=== PATIENT | male | born 1990 | race Asian ===

== ENCOUNTER 2024-06-22 04:01 | Day surgery (SDC) | payer OTHER ==
[2024-06-22] VITALS (221 sets, daily range): BP systolic 75–134; BP diastolic 42–108
[~2024-06-22] VITALS: Ht 180.3 cm; Wt 77.3 kg
--- NOTE | 2024-06-22 07:00 | NUR ---
Patient arrived to the ANR suite, identification and demographics confirmed. Patient to room 9, AAO, ambulatory, vitals obtained, ID/allergy/fall bands placed, changed into hospital gown, YOLANDA hose, and non-slip socks. Procedure and timeline explained for treatment and discharge. All questions answered and the patient presents no concerns at this time.
[2024-06-22] MEDS ORDERED: SCOPOLAMINE 1.5 MG DIS TD PRN (07:30)
[2024-06-22] MEDS ORDERED: cloNIDine HCL 0.1 MG/TAB PO PRN (07:30)
[2024-06-22] MEDS ORDERED: FAMOTIDINE 20 MG/TAB PO PRN (07:30)
[2024-06-22] MEDS ORDERED: diazePAM 5 MG/TAB PO PRN ×2 (07:30→08:30)
[2024-06-22] MEDS ORDERED: PANTOPRAZOLE SODIUM Sesquihydr 40 MG/TAB PO PRN (07:30)
[2024-06-22] MEDS ORDERED: LACTATED RINGER'S 1,000 ML IV PRN ×3 (07:30→19:00)
[2024-06-22] MEDS ORDERED: CYANOCOBALAMIN 500 MCG/TAB ( B12) PO PRN (07:30)
[2024-06-22] MEDS ORDERED: ALBUTEROL SULFATE 2.5 MG VIAL IN PRN (07:30)
--- NOTE | 2024-06-22 07:45 | NUR ---
Dr. Norton telephoned with patient intake information including usage, dose, last dose/time taken and initial vital signs. Patient history and allergies reviewed with MD. Orders received for 5 mg PO Valium and 0.2 mg PO Clonidine now. Will reassess per protocol in 1.5 hours and update MD with assessment and vitals.
[2024-06-22] MEDS ORDERED: ASCORBIC ACID 4,000 MG in SODIUM CHLORIDE 0.9% 1,000 ML IV SCH (08:00)
[2024-06-22 08:31] LABS: BASO% 0.5 % (0-3); EOS% 3.2 % (0-8); HEMATOCRIT 42.4 % (39.0-50.0); HEMOGLOBIN 13.5 g/dl (14.0-18.0); IMMATURE GRANULOCYTES 0.2 % (0.0-5.0); LYMPH% 35.7 % (15-41); MEAN CELL VOLUME 88.5 fL CALC (80.0-100.0); MEAN CORPUSCULAR HGB 28.2 pG CALC (26.0-32.0); MEAN CORPUSCULAR HGB CONC 31.8 g/dL CAL (32.0-36.0); NEUT# 3.26 thou/uL (1.82-7.42); NEUT% 52.4 % (42-76); RED BLOOD COUNT 4.79 mill/uL (4.70-6.10); RED CELL DISTRI WIDTH 11.7 % (11.5-15.5)
[2024-06-22 08:41] LABS: ALBUMIN 3.9 g/dL (3.2-5.0); BILIRUBIN, TOTAL 0.3 mg/dL (0.2-1.3); CREATININE 0.9 mg/dL (0.7-1.3); POTASSIUM 3.7 mmol/l (3.5-5.1); TOTAL PROTEIN 6.4 g/dL (6.3-8.2)
[2024-06-22] MEDS ORDERED: cloNIDine HYDROCHLORIDE 100 MCG/ML 10 ML INJ IV PRN (09:25)
[2024-06-22] MEDS ORDERED: LIDOCAINE HCL 1% (10MG/ML) 100 MG/10 ML MDV VT PRN ×2 (09:25)
[2024-06-22] MEDS ORDERED: DiphenhydrAMINE HCL 50 MG/ML SDV IV PRN (09:25)
[2024-06-22] MEDS ORDERED: diazePAM 5 MG/TAB VT PRN (09:25)
[2024-06-22] MEDS ORDERED: OCTREOTIDE ACETATE 100 MCG/VIAL SDV SC PRN (09:25)
[2024-06-22] MEDS ORDERED: cloNIDine HCL 0.1 MG/TAB VT PRN (09:25)
[2024-06-22] MEDS ORDERED: LIDOCAINE HCL 1% (10MG/ML) 100 MG/10 ML MDV IV PRN (09:25)
[2024-06-22] MEDS ORDERED: ONDANSETRON HCl 4 MG/2 ML SDV IV PRN ×3 (09:25→19:00)
[2024-06-22] MEDS ORDERED: PROPOFOL 10 MG/ML 100ML VIAL IV PRN (09:25)
[2024-06-22] MEDS ORDERED: DEXAMETHASONE SODIUM PHOSPHATE PF 10 MG/ML SDV IV PRN ×2 (09:25→19:00)
[2024-06-22] MEDS ORDERED: MIDAZOLAM HCL 2 MG/2 ML VIAL IV PRN (09:25)
[2024-06-22] MEDS ORDERED: STERILE WATER FOR IRRIGATION 1,000 ML BTL IR PRN (09:25)
[2024-06-22] MEDS ORDERED: PROPOFOL 100 ML IV PRN (09:25)
[2024-06-22] MEDS ORDERED: POTASSIUM CHLORIDE 20 MEQ/100 ML BAG IV PRN (09:25)
[2024-06-22] MEDS ORDERED: SUCCINYLCHOLINE CHLORIDE 20 MG/ML 10ML VIAL IV PRN (09:25)
[2024-06-22] MEDS ORDERED: NALTREXONE HCL 50 MG/TAB VT PRN (09:25)
[2024-06-22] MEDS ORDERED: THIAMINE HCL 100 MG/ML 2ML VIAL IV PRN (09:25)
[2024-06-22] MEDS ORDERED: ROCURONIUM BROMIDE 10 MG/ML 5ML VIAL IV PRN (09:25)
[2024-06-22] MEDS ORDERED: MAGNESIUM SULFATE HEPTAHYDRATE 100 ML IV PRN (09:25)
--- NOTE | 2024-06-22 09:30 | NUR ---
Patient resting comfortably in bed. Easily aroused, maintains focus, and drifts back to sleep. No signs of active withdrawal or distress noted at this time. Continuous SPO2, rhythm, and respiratory monitoring initiated. IVF @ 250 mL/HR, room air, VSS.
[2024-06-22] MEDS ORDERED: PHENYLEPHRINE HCL 10 MG/ML VIAL ONE (10:01)
[2024-06-22] MEDS ORDERED: SODIUM CHLORIDE 0.9% 250 ML IV ONE (10:02)
--- NOTE | 2024-06-22 11:33 | NUR ---
Induction Note Patient to ANR procedure room. Time out performed at 1106. Patient placed on monitors, Gaudencoi hugger, bilateral wrist restraints applied for ET tube protection. Versed 5mg given IV push at 1127 Tourniquet applied to right arm Lidocaine 100mg given at 1128 IV push followed by Rocoronium 10mg at 1129 IV push and held for 90 seconds. Propofol bolus of 160mg given at 1131 IV push. Succinylcholine 80mg given IV push at 1132. Smooth intubation with 7.5 ETT. Positive CO2. Positive Auscultation for air exchange. ET tube secured 22 @ the lip with tube hancock by Dr. Norton. Patient placed on ventilator for spontaneous ventilation. Placed on Propofol IV drip at 1133. OG inserted. Positive air on auscultation. Positive gastric content. Stomach washed at this time.
--- NOTE | 2024-06-22 11:45 | NUR ---
OG close note Stomach washed at this time. Naltrexone 50 mg via OG tube. OG will be clamped for 45 minutes.
--- NOTE | 2024-06-22 12:30 | NUR ---
OG open note OG open at this time. Gastric content draining into drainage bag. OG to drain for 45 minutes. Propofol will be titrated down based on patient.
--- NOTE | 2024-06-22 13:15 | NUR ---
OG close note Stomach washed at this time. Naltrexone 50 mg with Clonidine 0.1 mg via OG tube. OG will be clamped for 45 minutes.
--- NOTE | 2024-06-22 14:45 | NUR ---
OG close note Stomach washed at this time. Naltrexone 50 mg with Clonidine 0.1 mg via OG tube. OG will be clamped for 45 minutes.
[2024-06-22] MEDS ORDERED: NALTREXONE50 MG PO (15:24)
[2024-06-22] MEDS ORDERED: CLONIDINE0.1 MG PO (15:24)
[2024-06-22] MEDS ORDERED: KLONOPIN2 MG PO (15:25)
--- NOTE | 2024-06-22 16:15 | NUR ---
No OG close at this time. Patient minimally reacting to treatment. Vitals, total Naltrexone & Clonidine, current Propofol infusion rate, treatment duration, and patient assessment discussed with Dr. Norton. No orders for medication administration at this time. OG will remain open to allow time for patient to continue reacting to therapy.
--- NOTE | 2024-06-22 17:00 | NUR ---
OG close note Stomach washed at this time. Naltrexone 12.5 mg, Valium 10mg, and Clonidine 0.2 mg via OG tube. OG will be clamped for 30 minutes for closing dose.
--- NOTE | 2024-06-22 17:42 | NUR ---
Extubation note Closing medications given Benadryl 50mg IV push, Decadron 10mg IV push,Magnesium 4 grams IV, Zofran 8mg IV push, Octreotide 100mcg SC. Stomach washed out prior to extubation. Suctioned gastric content. OG removed. Patient extubated. Propofol Discontinued. Wrist restraints removed. Gaudencio hugger Removed. See ANR Moderate sedate recovery record for further notes and assessment.
--- NOTE | 2024-06-22 18:00 | NUR ---
PT PERSONAL BELONGINGS STORED IN LOCKER CRANDALL # 2 IN ANR.
--- NOTE | 2024-06-22 18:15 | NUR ---
PHONE CALL PLACED TO PT MOTHER. UPDATE PROVIDED AT THIS TIME. ALL QUESTIONS AND CONCERNS ANSWERED.
--- NOTE | 2024-06-22 18:38 | NUR ---
patient arrived to ms @ 1630 patient resting in; on room air; breathing unlabored and even; vitals stable; no s.s of distress at this time; iv site clean and intact LR runnning @100 in RAC; beside report given from Darius MAURO; patient laying semi byers in bed; call light within reach, personal items in ANR locker; bed in lowest postion; bed alarm activated
--- NOTE | 2024-06-22 18:40 | NUR ---
Patient to room 283 in no acute distress. Transfer of care to [facility] RORY. at bedside. PT on RA, IVF to continue at 100ml/hr. VSS. Patient resting comfortably, no adventitious breath sounds appreciated. Bed alarm set. See chart/EMAR for procedural details and assessments. Handoff of care at the time of this note.
[2024-06-22] MEDS ORDERED: PROMETHAZINE HCL 25 MG in SODIUM CHLORIDE 0.9% 50 ML IV PRN (19:00)
[2024-06-22] MEDS ORDERED: LORazepam 2 MG/ML IV PRN ×2 (19:00)
[2024-06-22] MEDS ORDERED: KETOROLAC TROMETHAMINE 30 MG/ML SDV IV PRN (19:00)
[2024-06-22] MEDS ORDERED: HALOPERIDOL LACTATE 5 MG/ML SDV IV PRN (19:00)
[2024-06-22] MEDS ORDERED: PROMETHAZINE HCL 12.5 MG in SODIUM CHLORIDE 0.9% 50 ML IV PRN (19:00)
[2024-06-22] MEDS ORDERED: ACETAMINOPHEN 1,000 MG/100 ML VIAL IV PRN (19:00)
[2024-06-22] MEDS ORDERED: ACETAMINOPHEN 500 MG TAB PO PRN (19:00)
--- NOTE | 2024-06-22 19:33 | NUR ---
RECEIVED REPORT FROM RORY VALLEJO. PT NOTED LAYING IN BED, SEMI FOWLERS. PT PRESENTING DROWSY, DISORIENTED, AND RESTLESS. PT CONTINUES TO TRY AND GET OUT OF BED, KICKING AT RAILINGS. MEDICATION ADMINISTERED PER EMAR FOR AGITATION. PT IS ON RM AIR, NO S/S OF DISTRESS. SEE WHEELER ASSISTED RESCUE INSTRUCTOR WITH CHANING AND CLEANING PT FROM [employer] EPISODE. ENCOURAGE PT TO RELAX AND REST. NURSING ASSESSMENT COMPLETED, IV SITES APPEARS HEALTHY AND INTACT. BED ALARM ON AND SAFETY PRECAUTIONS IN PLACE.
[2024-06-22] MEDS ORDERED: PATIENT' OWN MED CONTROLLED 1 EA DOSE IV PRN (21:00)
[2024-06-22] MEDS ORDERED: clonazePAM 1 MG/TAB PO PRN (23:00)
[2024-06-22] MEDS ORDERED: cloNIDine HCL 0.1 MG/TAB PO SCH (23:00)
--- NOTE | 2024-06-22 23:20 | NUR ---
PT RESTING NO DISTRESS NOTED ON EXAM. VS WNL ON RA LUNGS CLEAR. NO PAIN REPORTED AT THIS TIME. IV SITE CHECKED WORKING PROPERLY FLUIDS ONGOING. BED ALARM ON. CALL LIGHT WITHIN REACH. PLAN OF CARE ONGOING.
--- NOTE | 2024-06-23 01:15 | NUR ---
PT WAS ABLE TO AMBULATE TO RESTROOM WITH ASSISTANCE STILL UNSTABLE ON HIS FEET. PT URINATED AND HAD A BM. PT PULLED OUT HIS IV ON HIS LEFT ARM CATHETER TIP INTACT. IV FLUIDS RESTARTED ON HIS RIGHT ARM IV. BED ALARM JAVASCRIPT SOFTWARE ENGINEER LIGHT WITHIN REACH. PLAN OF CARE ONGOING.
[2024-06-23] MEDS ORDERED: clonazePAM 1 MG/TAB PO PRN ×2 (04:00→08:00)
[2024-06-23] MEDS ORDERED: cloNIDine HCL 0.1 MG/TAB PO PRN (04:00)
--- NOTE | 2024-06-23 04:10 | NUR ---
PT RESTING IN BED COMPLAINING OF RESTLESSNESS AND ANXIETY. NURSE PROVIDED 0400 PRN MEDICATIONS. VS WNL ON RA. IV INFUSION ONGOING WORKING PROPERLY. NO PAIN REPORTED AT THIS TIME. BED ALARM ON. CALL LIGHT WITHIN REACH. PLAN OF CARE ONGOING. 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
[2024-06-23 04:11] VITALS: BP 112/59
[2024-06-23 04:59] LABS: BASO% 0.1 % (0-3); HEMATOCRIT 43.4 % (39.0-50.0); HEMOGLOBIN 14.2 g/dl (14.0-18.0); IMMATURE GRANULOCYTES 0.4 % (0.0-5.0); LYMPH% 5.8 % (15-41); MEAN CELL VOLUME 87.3 fL CALC (80.0-100.0); MEAN CORPUSCULAR HGB 28.6 pG CALC (26.0-32.0); MEAN CORPUSCULAR HGB CONC 32.7 g/dL CAL (32.0-36.0); MONO% 2.6 % (2-13); NEUT# 10.37 thou/uL (1.82-7.42); NEUT% 91.1 % (42-76); RED BLOOD COUNT 4.97 mill/uL (4.70-6.10); RED CELL DISTRI WIDTH 11.7 % (11.5-15.5)
[2024-06-23 05:10] LABS: ALBUMIN 3.8 g/dL (3.2-5.0); CREATININE 0.9 mg/dL (0.7-1.3); MAGNESIUM 2.2 mg/dL (1.6-2.3); POTASSIUM 3.7 mmol/l (3.5-5.1); TOTAL PROTEIN 6.4 g/dL (6.3-8.2)
[2024-06-23 05:19] LABS: BILIRUBIN, TOTAL 0.5 mg/dL (0.2-1.3)
--- NOTE | 2024-06-23 06:10 | NUR ---
PT SLEEPING NO DISTRESS NOTED BREATHING NON LABOR EVEN EASILY AROUSABLE. CALL LIGHT WITHIN REACH. BED ALARM ON. IV FLUIDS INFUSION ONGOING.
--- NOTE | 2024-06-23 06:45 | NUR ---
Rounded on pt. ZUNILDA Bergman reports no incidents overnight. Pt is lying in bed with eyes closed. Labs drawn. Appropriate replacement ordered per protocol. All safety measures in place and functioning properly.
[2024-06-23 07:50] VITALS: BP 111/57
[2024-06-23] MEDS ORDERED: POTASSIUM CHLORIDE 20 MEQ/TAB PO SCH (08:00)
[2024-06-23] MEDS ORDERED: PANTOPRAZOLE SODIUM Sesquihydr 40 MG/TAB PO SCH (08:00)
[2024-06-23] MEDS ORDERED: ACETAMINOPHEN 325 MG/TAB PO SCH (08:00)
[2024-06-23] MEDS ORDERED: NALTREXONE HCL 50 MG/TAB PO SCH (08:00)
[2024-06-23] MEDS ORDERED: cloNIDine HCL 0.1 MG/TAB PO SCH (08:00)
--- NOTE | 2024-06-23 08:23 | NUR ---
patient a/o x3; room air; breathing unlabored and even; denied any pain; denied any n/d/v at this time; no complaints; patient tolerated medication admin; vitals stable; iv site clean and intact running with LR @100; encouraged patient to eat breakfast; patient mag was within normal range, potassium under range, Dr. Norton apprroved replacement; no s.s of distress at this time; call light within reach,verbalized understanding on how to use,personal items in ANR locker; bed in lowest postion; bed alarm activated
[2024-06-23] MEDS ORDERED: MAGNESIUM OXIDE 400 MG/TAB PO PRN (09:00)
[2024-06-23] MEDS ORDERED: Cholecalciferol 2,000 UNIT/TAB PO PRN (09:00)
[2024-06-23] MEDS ORDERED: ACETAMINOPHEN 500 MG TAB PO PRN (09:00)
--- NOTE | 2024-06-23 11:13 | NUR ---
checked on patient; patient a/o x3; stable; no issues at this time; no s/s of withdrawls, no complaints
--- NOTE | 2024-06-23 12:40 | NUR ---
patinet in bed sleeping, room air; breathing unlabored and even; denied any pain; denied any n/d/v at this time; patient ate small amount of lunch, encouraged to try to continue eating; iv site clean and intact running with LR @100; no complaints at this time; pateint personal items within reach, call light within reach,verbalized understanding on how to use, bed in lowest postion; bed alarm activated
--- NOTE | 2024-06-23 15:10 | NUR ---
patient ambulated down hallway , with limted assit
--- NOTE | 2024-06-23 15:19 | NUR ---
patient tolerated discharge medication
--- NOTE | 2024-06-23 16:26 | NUR ---
IV site discontinued, cath intact. No edema , no redness, voices no discomfort. Discharge instructions given. Patient verbalizes understanding of same. Discharged in stable condition via Ambulatory to Home with family. All belongings sent with pt. talked to patient and patient mother regarding discharge instructions, answered any questions they had, verbalized understanding on what to do as well as understanding there is a 24 hour nurse immigration coordinator
--- NOTE | 2024-06-23 16:55 | NUR ---
patient personal glasses in bathroom, grabbed and labelled with patient information and tooken to ANR
== END 2024-06-23 16:13 | disposition home or self-care (01) | DRG 897 ==
LOC: ANR 04:01 → MS2 04:01 → ANR 07:00 → MS2 18:02 → ANR 06-23 16:13
PROVIDERS: ATTEND Anesthesiology Critical Care Medicine
DX: F11.20 Opioid dependence, uncomplicated (principal)
CPT/HCPCS: J1100; J2060; J2354; J3475; J3490